=== PATIENT | male | born 1980 | race Caucasian/White ===

== ENCOUNTER 2019-07-09 12:16 | Emergency (ER) | payer OTHER, SELFPAY ==
[2019-07-09 12:18] VITALS: BP 132/79; PULSE 70; RESP 18; TEMP 36.2; O2SAT 98
--- NOTE | 2019-07-09 13:54 | DI.RAD.S_ITS ---
PROCEDURE: XR T AND L SPINE 2 TO 3 VIEWS INDICATIONS: low back pain, slipped down the ice/steps, +bruise and pain TECHNIQUE: 2 views acquired of the thoracolumbar spine. COMPARISON: None. FINDINGS: Bones: No acute fractures or dislocations. Visualized inferior ribs appear intact. No suspicious bony lesions. Multilevel endplate osteophytes. Soft tissues: No suspicious soft tissue calcifications. IMPRESSION: Multilevel degenerative disc disease. No definite acute fracture. No osseous lesion. If clinical symptoms and/or suspicion for pathology persist, repeat short interval plain film evaluation, or advanced imaging (e.g., CT, MRI, or bone scan) are recommended for further assessment. Dictated by: Edward Dailey M.D. on 07/09/2019 at 13:28 Approved by: Edward Dailey M.D. on 07/09/2019 at 13:29
--- NOTE | 2019-07-09 14:35 | ED_ITS ---
HPI - Back Pain/Injury <Maurice MenendezRUFINOP - Last Filed: 07/09/19 22:51> General Chief Complaint: Trauma Stated Complaint: fell off of steps at home Time Seen by Provider: 07/09/19 13:43 Source: patient Mode of arrival: Ambulatory Limitations: no limitations History of Present Illness HPI Narrative: This is a 38-year-old male, nonsmoker, who presents to ED with his grandmother with chief complain of back pain after he sustained a fall on a stairs. When he woke up this morning at 6, he slipped on icy steps and fell very hard on his back and sled down 4 steps in dark porch when his feet went out under his body. He is not sure whether he blacked out but he felt sudden heat rushed over his legs. It took sometime but was able to move. He does not think he hit his head when he fell. He went to work after this but felt increasing back discomfort and noticed bruise and hematoma. He felt pressure on his back. He denies hematuria, saddle anesthesia, incontinence for bladder or stools. He feels stiff when he ambulates. Patient denies is on anticoagulants. He had taken ibuprofen 1 hour prior coming into ED. He works as a law enforcement. Related Data Previous Rx's Medication Instructions Recorded cyclobenzaprine 10 mg PO BEDTIME PRN #7 tab 07/09/19 Allergies Allergy/AdvReac Type Severity Reaction Status Date / Time No Known Drug Allergies Allergy Verified 07/09/19 12:23 Review of Systems <Maurice Menendez [facility] - Last Filed: 07/09/19 22:51> Review of Systems Narrative: General: Denies fever, chills, fatigue, malaise, sweats. HEENT: Denies sinus pain, ear pain, sore throat, difficulty swallowing, dizziness. Respiratory: Denies dyspnea, cough, wheezing, hemoptysis, sputum. Cardiovascular: Denies chest pain, palpitations, orthopnea, edema. Gastrointestinal: Denies nausea, vomiting, abdominal pain, diarrhea, constipation, melena. : Denies dysuria, frequency, incontinence, hematuria, urinary retention. Musculoskeletal: See HPI. Skin: Denies rash, skin lesions, or other. Neurologic: Denies weakness, headache, numbness, change in speech, confusion, seizures, incoordination. Psychiatric: No concerning psychosocial issues. 12-point review of systems is negative except for those stated above. Patient History <DEWAYNE John - Last Filed: 07/09/19 22:51> Surgical History History of appendectomy (Acute) Social History Smoking Status: Never smoker Smoking Status: Never smoker alcohol intake frequency: 0-2 drinks per day Substance Use Type: does not use Exam <DEWAYNE John - Last Filed: 07/09/19 22:51> Narrative Exam Narrative: General appearance: well developed, well nourished, in no acute distress. Head: normocephalic, atraumatic, no scalp lesions, non-tender. ENT: Hearing grossly intact. No drainage from ears, no hemotympanum. Nose without bleeding, purulent discharge, septal hematoma or deviation. Turbinate without erythema or swelling. Facial sinuses nontender to palpate. Mucous membrane moist, no mucosal lesion. Throat without erythema, tonsillar hypertrophy or exudate. Uvula in midline, airway patent. Neck/Thyroid: neck supple, full range of motion, no visible masses or meningeal signs or step-offs. No JVD, non-tender without lymphadenopathy. Skin: no suspicious rashes, lesions over visible areas. Warm and dry and appropriate color for ethnicity. Heart: no clubbing, no cyanosis, no edema. S1 and S2 normal. RRR w/o murmurs, clicks, or bruits. Lungs: Breathing even and unlabored. No stridor. No accessory muscles used. Able to speak in full sentences. Chest: normal shape and expansion. Abdomen: non-obese, non-distended. Neurologic: alert and oriented. Cognitive exam, [employer] and PNS grossly intact on informal exam. Psych: good eye contact, normal affect. Initial Vital Signs Initial Vital Signs: Vital Signs Temperature 97.2 F L 07/09/19 12:18 Pulse Rate 70 07/09/19 12:18 Respiratory Rate 18 07/09/19 12:18 Blood Pressure 132/79 07/09/19 12:18 Pulse Oximetry 98 07/09/19 12:18 Back/Spine/Pelvis Cervical Spine: cervical ROM normal, No cervical muscular tenderness, No cervical spasm, No cervical spinal tenderness and No step off deformity Thoracic/Lumbar Spine: thoraco-lumbar ROM normal, straight leg raise negative bilaterally, paraspinal tenderness, No lumbar spinal tenderness and other (ecchymosis and abrasion to LLB mostly) <Tez Soria DO - Last Filed: 07/10/19 13:18> Initial Vital Signs Initial Vital Signs: Vital Signs Temperature 97.2 F L 07/09/19 12:18 Pulse Rate 70 07/09/19 12:18 Respiratory Rate 18 07/09/19 12:18 Blood Pressure 132/79 07/09/19 12:18 Pulse Oximetry 98 07/09/19 12:18 Scores <DEWAYNE John - Last Filed: 07/09/19 22:51> GCS [place] coma scale eye opening: Spontaneous [place] coma scale verbal response: Orientated [place] coma scale motor response: Obey commands [place] coma scale total score: 15 Course <DEWAYNE John - Last Filed: 07/09/19 22:51> Orders Ordered: Discontinued Medications Acetaminophen (Tylenol) 650 mg PO NOW ONE Stop: 07/09/19 13:55 Last Admin: 07/09/19 14:44 Dose: 650 mg Documented by: ANGELIA Vital Signs Vital signs: Vital Signs - 8 hr 07/09/19 14:55 Pulse Rate 58 L Respiratory Rate 16 Blood Pressure 137/85 Pulse Oximetry 98 <Tez Soria DO - Last Filed: 07/10/19 13:18> Orders Ordered: Discontinued Medications Acetaminophen (Tylenol) 650 mg PO NOW ONE Stop: 07/09/19 13:55 Last Admin: 07/09/19 14:44 Dose: 650 mg Documented by: RSTONE Vital Signs Vital signs: Vital Signs - 8 hr 07/09/19 14:55 Pulse Rate 58 L Respiratory Rate 16 Blood Pressure 137/85 Pulse Oximetry 98 MDM - Back Pain/Injury <DEWAYNE John - Last Filed: 07/09/19 22:51> Differential Diagnosis Differential diagnosis: Likely other (Lumbar contusion, Lumbar superifical abrasion, Kidney injury) Medical Records Attestation: I reviewed the patient's medical records. Lab Data Attestation: I reviewed the patient's lab results. Labs: Urine Dip Bedside Urine Glucose Negative Bedside Urine Bilirubin - Negative Bedside Urine Ketone +/- 5 Urine Specific [place] 1.015 Bedside Urine Occult Blood - Negative Bedside Urine pH 6.0 Bedside Urine Protein +/- 15 Bedside Urine Urobilinogen - Negative Bedside Urine Nitrite - Negative Bedside Urine Leukocytes - Negative Esterase Imaging Data XR-Lumbar: Radiologist's Impression: [address] [address] XRay Report Signed Patient: Kulwant Salgado JMR#: [id number] : 1980Acct:[id number] Age/Sex: 38 / MDate of Service: 07/09/19 Loc: ED Accession Number: [id number] Procedure: XR t and l spine 2 to 3 views Ordering Provider: Maurice Menendez PROCEDURE: XR T AND L SPINE 2 TO 3 VIEWS INDICATIONS: low back pain, slipped down the ice/steps, +bruise and pain TECHNIQUE: 2 views acquired of the thoracolumbar spine. COMPARISON: None. FINDINGS: Bones: No acute fractures or dislocations. Visualized inferior ribs appear intact. No suspicious bony lesions. Multilevel endplate osteophytes. Soft tissues: No suspicious soft tissue calcifications. IMPRESSION: Multilevel degenerative disc disease. No definite acute fracture. No osseous lesion. If clinical symptoms and/or suspicion for pathology persist, repeat short interval plain film evaluation, or advanced imaging (e.g., CT, MRI, or bone scan) are recommended for further assessment. Dictated by: Edward Dailey M.D. on 07/09/2019 at 13:28 Approved by: Edward Dailey M.D. on 07/09/2019 at 13:29 [facility] Narrative Medical decision making narrative: Physical exam on lumbar and thoracic is benign. Patient is able to forward flex, extend, and rotate without much discomfort. The patient and abrasion and ecchymosis without hematoma to lower back. Thoracolumbar x-ray was obtained and does not show acute fracture but multiple level degenerative disc disease. UA shows no occult hematuria. Patient was medicated with Tylenol while in ED. patient advised to use [id number] Tylenol and or Motrin as needed for discomfort and ice pack for next couple of days frequently. Workup note provided for couple of days if patient needed. Return precautions were discussed with the patient and patient verbalized the understanding and agrees with the treatment plan. <Tez Soria DO - Last Filed: 07/10/19 13:18> Lab Data Labs: Urine Dip Bedside Urine Glucose Negative Bedside Urine Bilirubin - Negative Bedside Urine Ketone +/- 5 Urine Specific [place] 1.015 Bedside Urine Occult Blood - Negative Bedside Urine pH 6.0 Bedside Urine Protein +/- 15 Bedside Urine Urobilinogen - Negative Bedside Urine Nitrite - Negative Bedside Urine Leukocytes - Negative Esterase Discharge Plan Departure Patient Disposition: Home Clinical Impression: Lumbar contusion Qualifiers: Encounter type: initial encounter Qualified Code(s): S30.0XXA - Contusion of lower back and pelvis, initial encounter Discharge Date/Time: 07/09/19 14:55 Activity Restrictions/Additional Instructions: You have been diagnosed with [back strain from fall. No acute findings such as fractures or dislocation. Urine test does not show blood as well indicating kidney injury.]. What to do: *Take your medications as directed. Please continue to take Tylenol and or Motrin as needed for discomfort. Tylenol 650-1000 mg up to 4 times a day as needed and ibuprofen 400-600 mg 3 times a day with food as needed for discomfort. Please use ice pack next couple of days on and off for 30 minutes to decrease inflammation. You can use Flexeril only needed if your back muscle is tight. It can cause drowsiness so please take precaution. *Follow up with your primary care provider in 2-3 days, call for an appointment. Let them know you were seen in the ED and that we asked you to be seen in follow up. *Return to ED if you have any new, worsening, or concerning symptoms, such as [incontinence for bladder/stool, numbness tingling to her groin area, weakness/tingling/numbness to lower extremities, chest pain, breathing difficulty or any acute concerns.]. Prescriptions: New cyclobenzaprine 10 mg tablet 10 mg PO BEDTIME PRN (Reason: muscle spasm) Qty: 7 RF: 0 Referrals: Devan Becker MD [Physician] - Stand Alone Forms: Work Release Note <Tez Soria DO - Last Filed: 07/10/19 13:18> Sign Out Provider Sign Out Attestation: Dr Soria Co-Sign Statement: I was available for consultation during this patient's emergency department visit. This chart is signed by myself for administrative purposes only. I did not have direct contact with this patient during this visit. They were seen independently by the APC.
[2019-07-09] MEDS: ACETAMINOPHEN 325 MG TABLET 650 MG PO (14:44)
[2019-07-09 14:55] VITALS: BP 137/85; PULSE 58; RESP 16; O2SAT 98
== END 2019-07-09 14:55 | disposition home or self-care (01) ==
PROVIDERS: Emergency Provider Nurse Practitioner Family; PCP Nurse Practitioner Family
DX: S30.0XXA Contusion of lower back and pelvis, initial encounter (principal); W10.9XXA Fall (on) (from) unspecified stairs and steps, initial encounter; Y93.29 Activity, other involving ice and snow
CPT/HCPCS: 72082; 81003; 99283

== ENCOUNTER → 2022-10-12 14:16 | Outpatient (ROUT) | payer OTHER, SELFPAY ==
[2022-10-12 15:03] LABS: Influenza A - CEPHEID Flu A NEGATIVE (NEGATIVE); Influenza B - CEPHEID Flu B NEGATIVE (NEGATIVE); Respiratory Syncytial Virus Negative (Negative)
[2022-10-12 17:00] LABS: COVID-19 CEPHEID 4-PLEX PCR Negative (Negative)
== END ==
PROVIDERS: PCP Nurse Practitioner Family; Visit Provider Family Medicine
DX: J02.9 Acute pharyngitis, unspecified (principal)
CPT/HCPCS: 0241U